=== PATIENT | male | born 1985 | race Caucasian/White ===

== ENCOUNTER 2023-10-18 19:58 | Emergency (ER) | payer SELFPAY ==
[~2023-10-18] VITALS: Ht 182.8 cm; Wt 110.0 kg
[2023-10-18 20:05] VITALS: BP 131/75
--- NOTE | 2023-10-18 20:10 | ED Psychosocial ---
General Chief Complaint: Substance Abuse Stated Complaint: INTOXICATED Source: patient Exam Limitations: no limitations History of Present Illness Date Seen by Provider: Oct 18, 2023 Time Seen by Provider: 19:51 Initial Comments 38-year-old male with severe alcoholism presents at the request of his sister because he has been intoxicated since . She states that usually on 7-10-day "benders." He has been in and out of alcohol rehab facilities but has relapsed each time. He does occasionally vomit blood and did so yesterday. He has been checked for esophageal varices he states that he does not have them. All other systems reviewed and negative except documented per HPI. Voice recognition software was used to help create this chart Allergies and Home Medications Allergies Coded Allergies: No Known Drug Allergies (Unverified , 10/18/23) Patient Home Medication List Home Medication List Reviewed: Yes No Active Prescriptions or Reported Meds Review of Systems Constitutional: see HPI Past Nsajraq-Jhoefu-Lzujhx Hx Patient Social History Tobacco Use?: No Use of E-Cig and/or Vaping dev: No Substance use?: No Alcohol Use?: Yes Physical Exam Vital Signs - First Documented 10/18/23 20:05 Temp 36.3 Pulse 87 Resp 16 B/P (MAP) 131/75 (93) Pulse Ox 97 O2 Delivery Room Air Capillary Refill : Height, Weight, BMI Height: '" Weight: lbs. oz. kg; BMI Method: General Appearance: WD/WN, no apparent distress, other (Patient is clearly intoxicated) HEENT: normal ENT inspection, pharynx normal Neck: non-tender, supple Respiratory: chest non-tender, lungs clear, normal breath sounds, no respiratory distress, no accessory muscle use Cardiovascular: regular rate, rhythm, no murmur Gastrointestinal: normal bowel sounds, non tender, soft, no organomegaly Extremities: normal range of motion, non-tender, normal capillary refill Neurologic/Psychiatric: alert, oriented x 3 Skin: normal color, warm/dry Progress/Results/Core Measures Results/Orders Lab Results Laboratory Tests Test 10/18/23 20:10 Range/Units White Blood Count 3.9 L 4.3-11.0 10^3/uL Red Blood Count 4.70 4.30-5.52 10^6/uL Hemoglobin 14.6 13.3-17.7 g/dL Hematocrit 42 40-54 % Mean Corpuscular Volume 89 80-99 fL Mean Corpuscular Hemoglobin 31 25-34 pg Mean Corpuscular Hemoglobin Concent 35 32-36 g/dL Red Cell Distribution Width 13.8 10.0-14.5 % Platelet Count 57 L 130-400 10^3/uL Mean Platelet Volume 10.5 9.0-12.2 fL Immature Granulocyte % (Auto) 0 % Neutrophils (%) (Auto) 73 42-75 % Lymphocytes (%) (Auto) 19 12-44 % Monocytes (%) (Auto) 7 0-12 % Eosinophils (%) (Auto) 1 0-10 % Basophils (%) (Auto) 1 0-10 % Neutrophils # (Auto) 2.9 1.8-7.8 10^3/uL Lymphocytes # (Auto) 0.7 L 1.0-4.0 10^3/uL Monocytes # (Auto) 0.3 0.0-1.0 10^3/uL Eosinophils # (Auto) 0.1 0.0-0.3 10^3/uL Basophils # (Auto) 0.0 0.0-0.1 10^3/uL Immature Granulocyte # (Auto) 0.0 0.0-0.1 10^3/uL Percent Immature Platelet Fraction 9.2 H 0.0-7.6 % Sodium Level 134 L 135-145 MMOL/L Potassium Level 3.0 L 3.6-5.0 MMOL/L Chloride Level 91 L 98-107 MMOL/L Carbon Dioxide Level 25 21-32 MMOL/L Anion Gap 18 H 5-14 MMOL/L Blood Urea Nitrogen 6 L 7-18 MG/DL Creatinine 0.53 L 0.60-1.30 MG/DL Estimat Glomerular Filtration Rate 131 BUN/Creatinine Ratio 11 Glucose Level 116 H 70-105 MG/DL Calcium Level 8.4 L 8.5-10.1 MG/DL Corrected Calcium 8.2 L 8.5-10.1 MG/DL Total Bilirubin 3.1 H 0.1-1.0 MG/DL Aspartate Amino Transf (AST/SGOT) 656 H 5-34 U/L Alanine Aminotransferase (ALT/SGPT) 298 H 0-55 U/L Alkaline Phosphatase 177 H 40-136 U/L Total Protein 8.2 6.4-8.2 GM/DL Albumin 4.3 3.2-4.5 GM/DL Lipase 144 H 8-78 U/L Smear Scan PLATELET SCAN OK My Orders Orders - MATTHEW MAY DO Cbc And Automated Diff (10/18/23 20:06) Comprehensive Metabolic Panel (10/18/23 20:06) Lipase (10/18/23 20:06) Chest 1 View Ap/Pa Only (10/18/23 20:06) Ns Iv 1000 Ml (Ns Iv 1000 Ml) (10/18/23 20:15) Ondansetron Injection (Ondansetron Inj (10/18/23 20:15) Medications Given in ED Current Medications Medications Dose Ordered Sig/Valarie Route Start Time Stop Time Status Last Admin Dose Admin Ondansetron HCl 8 mg ONCE ONCE IVP 10/18/23 20:15 10/18/23 20:16 DC 10/18/23 20:15 8 MG Vital Signs/I&O 10/18/23 20:05 Temp 36.3 Pulse 87 Resp 16 B/P (MAP) 131/75 (93) Pulse Ox 97 O2 Delivery Room Air Departure Communication (Admissions) Patient is hemodynamically stable. He has a myriad of minor electrolyte abnormalities. He has some low platelets. No active bleeding here. He has had no nausea or vomiting since given IV fluids and has been sleeping the majority of the time. His sister is very frustrated that we do not manage the hospital "overnight for detox." When asked what that would accomplish she states will you could hydrate him. I advised that he is not having any vomiting he is actually drink water here without any vomiting and there is no indication for admission at this time. I advised her that 1 night of detox was not beneficial in any way as the minute he is discharged she would immediately start drinking and we were putting him through detox symptoms for no reason at that point. I do agree that he needs detox long-term but he has tried several times per her report without any luck. The patient is not currently motivated for detox and thus this will likely not work. She is again very frustrated and yelling that we are just "kicking them out." I advised them not to come out anyway and she is welcome to seek care if she wanted a second opinion at another facility. She states understanding. Impression Primary Impression: Alcohol abuse Disposition: HOME, SELF-CARE Condition: Stable Departure-Patient Inst. Patient Instructions: ALCOHOL AND SUBSTANCE ABUSE Add. Discharge Instructions: Unfortunately this is a longstanding problem. He does not meet any criteria for admission at this time. Continue to monitor him at home and seek alcohol treatment programs as necessary. Return to the emergency department for any severe concerns. You are welcome to seek care anywhere else if you deem it necessary. All discharge instructions reviewed with patient and/or family. Voiced understanding. Scripts No Active Prescriptions or Reported Meds MATTHEW MAY DO Oct 18, 2023 20:10
[2023-10-18] MEDS ORDERED: ONDANSETRON INJECTION 4 MG/2 ML (SDV) IVP ONE (20:15)
[2023-10-18] MEDS ORDERED: NS IV 1000 ML 1,000 ML IV SCH (20:15)
--- NOTE | 2023-10-18 20:31 | Diagnostic Imaging Report ---
INDICATION: Vomiting, blood, EtOH. EXAMINATION: Chest 10/18/2023 Single view chest FINDINGS: The cardiomediastinal silhouette is unremarkable. The pulmonary vasculature is within normal limits. The lungs and pleural spaces are clear. IMPRESSION: No evidence of an acute cardiopulmonary process. Dictated by: Dictated on workstation # [id number]
[2023-10-18 20:40] LABS: BASOPHILS % (AUTO) 1 % (0-10); EOSINOPHILS # (AUTO) 0.1 10^3/uL (0.0-0.3); EOSINOPHILS % (AUTO) 1 % (0-10); HEMATOCRIT 42 % (40-54); HEMOGLOBIN 14.6 g/dL (13.3-17.7); LYMPHOCYTES # (AUTO) 0.7 10^3/uL (1.0-4.0); LYMPHOCYTES % (AUTO) 19 % (12-44); MEAN CORPUSCULAR HEMOGLOBIN 31 pg (25-34); MEAN CORPUSCULAR HGB CONC 35 g/dL (32-36); MEAN CORPUSCULAR VOLUME 89 fL (80-99); MEAN PLATELET VOLUME 10.5 fL (9.0-12.2); MONOCYTES # (AUTO) 0.3 10^3/uL (0.0-1.0); MONOCYTES % (AUTO) 7 % (0-12); NEUTROPHILS # (AUTO) 2.9 10^3/uL (1.8-7.8); NEUTROPHILS % (AUTO) 73 % (42-75); PLATELET COUNT 57 10^3/uL (130-400); WHITE BLOOD COUNT 3.9 10^3/uL (4.3-11.0)
[2023-10-18 20:53] LABS: SMEAR SCAN COMMENT PLATELET SCAN OK
[2023-10-18 21:02] LABS: CALCIUM 8.4 MG/DL (8.5-10.1); CREATININE SERUM 0.53 MG/DL (0.60-1.30)
[2023-10-18 21:03] LABS: ALBUMIN 4.3 GM/DL (3.2-4.5); BILIRUBIN,TOTAL 3.1 MG/DL (0.1-1.0); TOTAL PROTEIN 8.2 GM/DL (6.4-8.2)
== END 2023-10-18 21:15 | disposition home or self-care (01) ==
LOC: ER FS 20:01
DX: F10.10 Alcohol abuse, uncomplicated (principal)
CPT/HCPCS: 36415; 71045; 80053; 83690; 85025